=== PATIENT | male | born 1980 | race African-American/Black ===

== ENCOUNTER 2020-08-07 18:41 | Observation (INO) | payer BC, OTHER ==
[2020-08-07 18:58] VITALS: BMI 25.7
[2020-08-07] MEDS ORDERED: ACETAMINOPHEN 1000 MG/100 ML VIAL (NON FORMULARY) IVPB ONE (19:49)
[2020-08-07] MEDS ORDERED: LACTATED RINGERS SOLUTION 1000 ML INFUS.BAG IV ONE (19:49)
[2020-08-07] MEDS ORDERED: ACETAMINOPHEN INJECTION 100 ML IVPB ONE (20:51)
[2020-08-07 20:52] LABS: BASO % 1.1 % (0-2.0); EOS % 4.7 % (0-4.5); HEMATOCRIT 45.2 % (35.4-49); HEMOGLOBIN 15.1 GM/dL (11.7-16.9); LYMPH % 27.5 % (8-40); MCH 28.6 pg (25.7-33.7); MCHC 33.4 g/dl (32.0-35.9); MEAN CELL VOLUME 85.6 fl (80-96); MEAN PLT VOLUME 7.4 fl (7.5-11.1); MONO % 7.1 % (3.8-10.2); NEUT % 59.6 % (42.8-82.8); PLATELET COUNT 311 K/MM3 (134-434); RBC 5.28 M/mm3 (4.00-5.60); RDW 13.1 % (11.9-15.9); WHITE BLOOD COUNT 5.4 K/mm3 (4.0-10.0)
[2020-08-07 21:10] LABS: CHLORIDE 104 mmol/L (98-107); SODIUM 140 mmol/L (136-145)
[2020-08-07 21:12] LABS: CALCIUM 8.8 mg/dL (8.5-10.1)
[2020-08-07 21:13] LABS: ALBUMIN 3.7 g/dl (3.4-5.0); ANION GAP 7 MMOL/L (8-16); BLOOD UREA NITROGEN 19.8 mg/dL (7-18); CO2 30 mmol/L (21-32); GLUCOSE,RANDOM 91 mg/dL (74-106); MAGNESIUM 2.2 mg/dL (1.8-2.4)
[2020-08-07 21:16] LABS: CREATININE 1.1 mg/dL (0.55-1.3); SGOT/AST 26 U/L (15-37); SGPT/ALT 38 U/L (13-61)
[2020-08-07 21:18] LABS: BILIRUBIN,TOTAL 0.3 mg/dL (0.2-1); TOT PROT 7.1 g/dl (6.4-8.2)
[2020-08-07 21:19] LABS: ALK PHOS 119 U/L (45-117)
[2020-08-08] MEDS ORDERED: MELATONIN 5 MG TABLETS PO ONE (00:13)
[2020-08-08] MEDS ORDERED: ALBUTEROL SO4 2.5/IPRATROPIUM 0.5 INH SOL 3 ML VIAL.NEB. NEB ONE (01:27)
[2020-08-08] MEDS ORDERED: SODIUM CHLORIDE 1,000 ML IV SCH ×2 (01:30→01:42)
[2020-08-08 02:53] LABS: PH,URINE 6.5 (5.0-8.0); URINE APPEARANCE CLEAR; URINE BILIRUBIN NEGATIVE (NEGATIVE); URINE COLOR YELLOW; URINE GLUCOSE (UA) NEGATIVE (NEGATIVE); URINE KETONE TRACE (NEGATIVE); URINE LEUK ESTERASE NEGATIVE (NEGATIVE); URINE NITRITE NEGATIVE (NEGATIVE); URINE PROTEIN NEGATIVE (NEGATIVE); URINE UROBILINOGEN 0.2 mg/dL (0.2-1.0)
[2020-08-08 03:03] LABS: OPIATES, URI NEGATIVE ng/ml (CUTOFF=300); PHENCYCLIDINE,URINE NEGATIVE ng/ml (CUTOFF=25); URINE BARBITURATES NEGATIVE ng/ml (CUTOFF=200)
[2020-08-08 03:04] LABS: COCAINE, UR NEGATIVE ng/ml (CUTOFF=300); METHADONE, UR NEGATIVE ng/ml (CUTOFF=300); URINE AMPHETAMINES NEGATIVE ng/ml (CUTOFF=500); URINE BENZODIAZEPINES NEGATIVE ng/ml (CUTOFF=200)
[2020-08-08 06:25] LABS: HEMATOCRIT 43.7 % (35.4-49); HEMOGLOBIN 14.7 GM/dL (11.7-16.9); MCH 28.5 pg (25.7-33.7); MCHC 33.6 g/dl (32.0-35.9); MEAN CELL VOLUME 84.8 fl (80-96); MEAN PLT VOLUME 7.3 fl (7.5-11.1); PLATELET COUNT 282 K/MM3 (134-434); RBC 5.15 M/mm3 (4.00-5.60); RDW 13.2 % (11.9-15.9)
[2020-08-08 06:42] LABS: BLOOD UREA NITROGEN 13.9 mg/dL (7-18); CALCIUM 8.3 mg/dL (8.5-10.1)
[2020-08-08] MEDS ORDERED: ENOXAPARIN NA (PORCINE) 40 MG/0.4 ML DISP.SYRIN SQ ONE (09:44)
[2020-08-08] MEDS: ENOXAPARIN NA (PORCINE) 40 MG/0.4 ML DISP.SYRIN SQ SCH (09:58)
[2020-08-09 07:55] LABS: HEMATOCRIT 45.1 % (35.4-49); HEMOGLOBIN 15.3 GM/dL (11.7-16.9); MCH 28.9 pg (25.7-33.7); MEAN PLT VOLUME 7.5 fl (7.5-11.1); PLATELET COUNT 297 K/MM3 (134-434); RBC 5.31 M/mm3 (4.00-5.60); RDW 12.8 % (11.9-15.9)
[2020-08-09 08:10] LABS: BLOOD UREA NITROGEN 10.3 mg/dL (7-18); CALCIUM 8.9 mg/dL (8.5-10.1)
[2020-08-09 08:14] LABS: CREATININE 1.1 mg/dL (0.55-1.3)
[2020-08-09 08:31] VITALS: BP 128/77; PULSE 59; TEMP 98
[2020-08-09] MEDS: ENOXAPARIN NA (PORCINE) 40 MG/0.4 ML DISP.SYRIN SQ SCH (09:26)
== END 2020-08-09 16:37 | disposition home or self-care (01) ==
LOC: JER 18:41 → JERBED 23:11 → J4W 08-08 13:42
PROVIDERS: ADMIT Internal Medicine; ATTEND Internal Medicine
PROC: 3E0337Z Introduction of Electrolytic and Water Balance Substance into Peripheral Vein, Percutaneous Approach (ICD-10-PCS; principal; 2020-08-07)
PROC: 3E023GC Introduction of Other Therapeutic Substance into Muscle, Percutaneous Approach (ICD-10-PCS; 2020-08-07)
PROC: 3E033NZ Introduction of Analgesics, Hypnotics, Sedatives into Peripheral Vein, Percutaneous Approach (ICD-10-PCS; 2020-08-07)
DX: R55 Syncope and collapse (principal); R94.31 Abnormal electrocardiogram [ECG] [EKG]; J45.909 Unspecified asthma, uncomplicated; R56.9 Unspecified convulsions
CPT/HCPCS: 36415; 70450-TC; 70551-TC; 71045-TC-FY; 72125-TC; 80048; 80053; 80061; 80307; 81003; 82550; 82553; 83721; 83735; 84146; 84443; 84484; 85025; 85027; 87086; 87186; 93005; 93010; 93306-TC; 93880-TC; 95816; 97116-GP; 97161-GP; 99285-25; C9803; G0378; J0131; U0003; U0005